=== PATIENT | male | born 1990 | race Caucasian/White ===

== ENCOUNTER 2018-02-06 20:50 | Emergency (ER) | payer OTHER ==
[2018-02-06 21:06] VITALS: TEMP 98; O2SAT 100
[2018-02-06] MEDS ORDERED: Alum-Mag Hydrox-Simethicone Susp (30 mL) PO STA (21:38)
--- NOTE | 2018-02-06 21:40 | C.PDOC ---
History Of Present Illness 27 y/o male presents to ED with complaints of burning epigastric chest discomfort that began this afternoon after eating brazilian fries. Hx of reflux disease, panic and anxiety associated with palpitations. Patient states symptoms are worsened while laying down and watching TV this evening. He reports that he took sodium bicarbonate water with relief. Patient was evaluated in [place] [facility] 2 weeks ago for same symptoms with normal cardiac workup. Also he was evaluated 1 year ago with normal cardiac workup. Patient has no outpatient follow up for anxiety. 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 Patient also reports poor food decisions and always rushing when eating. Time Seen by Provider: 02/06/18 21:09 Chief Complaint (Nursing): High Blood Pressure History Per: Patient History/Exam Limitations: no limitations Onset/Duration Of Symptoms: Hrs Current Symptoms Are (Timing): Still Present Associated Symptoms: Other (Epigastric chest discomfort) Recent travel outside of the [place]: No Past Medical History Reviewed: Historical Data, Nursing Documentation, Vital Signs Vital Signs: Last Vital Signs Temp 98 F 02/06/18 20:58 Pulse 108 H 02/06/18 20:58 Resp 20 02/06/18 20:58 BP 125/82 02/06/18 20:58 Pulse Ox 100 02/06/18 21:39 - Medical History PMH: No Chronic Diseases Surgical History: No Surg Hx Family History: States: No Known Family Hx - Social History Hx Tobacco Use: No Hx Alcohol Use: Yes Hx Substance Use: No - Immunization History Hx Influenza Vaccination: No Hx Pneumococcal Vaccination: No Review Of Systems Constitutional: Negative for: Fever, Chills Cardiovascular: Positive for: Other (Brning epigastric chest discomfort) Gastrointestinal: Negative for: Nausea, Vomiting, Abdominal Pain, Diarrhea Neurological: Negative for: Weakness, Numbness Physical Exam - Physical Exam Appears: Well, Non-toxic, No Acute Distress Skin: Normal Color, Warm, Dry Head: Atraumatic, Normacephalic Eye(s): bilateral: Normal Inspection Oral Mucosa: Moist Neck: Supple Chest: Symmetrical, No Tenderness Cardiovascular: Rhythm Regular Respiratory: Normal Breath Sounds, No Decreased Breath Sounds, No Rales, No Rhonchi, No Wheezing Gastrointestinal/Abdominal: Soft, No Tenderness, No Distention, No Guarding, No Rebound Neurological/Psych: Oriented x3, Normal Speech, Normal Cognition ED Course And Treatment O2 Sat by Pulse Oximetry: 100 (RA) Pulse Ox Interpretation: Normal Medical Decision Making Medical Decision Making: GERD vs anxiety/palps/panic h/o panic poor diet brazilian fries and GERD s/s today maalox given and educated. opt f/u with GI PRN EKG Results: - Normal sinus rhythm at 91 bpm Disposition Doctor Will See Patient In The: Office Counseled Patient/Family Regarding: Studies Performed, Diagnosis - Disposition Referrals: Zen Fuentes MD [Medical Doctor] - Disposition: HOME/ ROUTINE Disposition Time: 21:39 Condition: GOOD Additional Instructions: pepcid 20 mg @ night- reduces stomach acid, especially while supine and while stomach acid is strongest @ 3AM maalox 3-5x/day one tablespoon (30 cc's) for the first 2-3 days then as needed- keep in your pocket. Follow-up with Dr. Fuentes to be referred for upper endoscopy in 1-2 months as needed (if symptoms persist) LOW likelyhood of cardiac issues. outpatient psych as needed for panic/anxiety- [facility] is close by and free for referrals, meds/prescriptions, and counseling. Instructions: Acid Reflux (Gastroesophageal Reflux Disease), Adult (DC), Palpitations (DC) Forms: [employer] ([place]) - Clinical Impression Clinical Impression: Chest discomfort, Palpitations - Scribe Statement The provider has reviewed the documentation as recorded by the Neibkash Das All medical record entries made by the Scribkash were at my direction and personally dictated by me. I have reviewed the chart and agree that the record accurately reflects my personal performance of the history, physical exam, medical decision making, and the department course for this patient. I have also personally directed, reviewed, and agree with the discharge instructions and disposition.
[2018-02-06] MEDS ORDERED: Aluminum Hydroxide/Magnesium Hydroxide Susp (30 mL) ONE (21:42)
[2018-02-06 21:56] VITALS: BP 120/80; PULSE 84; RESP 14
== END 2018-02-06 21:56 | disposition home or self-care (01) ==
LOC: C.ER 20:50
DX: R07.9 Chest pain, unspecified (principal); R00.2 Palpitations; K21.9 Gastro-esophageal reflux disease without esophagitis; F41.9 Anxiety disorder, unspecified